=== PATIENT | male | born 1960 | race Caucasian/White ===

== ENCOUNTER → 2017-07-18 | Outpatient (REF) ==
--- NOTE | 2017-07-18 13:38 | DI ---
EXAM: Two views of the chest. History: Pre employment screening radiograph Comparison: Chest radiograph 07/14/2014 Findings: Heart size is within normal limits. Small nodule seen within the left lower lung was not visualized on the prior study. No appreciable pleural fluid and no pneumothorax. No acute osseous abnormalities. Impression: Unexpected finding: Left lower lobe lung nodule. Recommend further evaluation with [facility] CT.
== END ==
LOC: RAD 11:46
DX: Z02.89 Encounter for other administrative examinations (principal)